=== PATIENT | female | born 1995 | race Two or more races ===

== ENCOUNTER 2024-06-12 03:10 | Emergency (ER) | payer OTHER ==
[2024-06-12] MEDS: Famotidine 20 MG Tab PO ONE (03:50)
[2024-06-12] MEDS: diphenhydrAMINE 50 MG Cap PO ONE (03:50)
[2024-06-12] MEDS: EPINEPHrine 1 MG/ML SDV IM ONE (03:56)
== END 2024-06-12 04:39 | disposition home or self-care (01) ==
LOC: MW.ED 03:10
DX: T78.2XXA Anaphylactic shock, unspecified, initial encounter (principal); L50.0 Allergic urticaria
CPT/HCPCS: 96372; 99284; A9270; J0171; J1100; 99283